=== PATIENT | female | born 1940 | race Caucasian/White ===

== ENCOUNTER → 2019-10-13 | Outpatient (CLI) | payer MEDICARE ==
[~2019-10-13] VITALS: Ht 167.6 cm; Wt 76.7 kg
[~2019-10-13] MED LIST: REGADENOSON 0.4 MG/5 ML PF SYG IVP SCH
== END | disposition home or self-care (01) ==
LOC: SHCH 08:19
PROVIDERS: ATTEND Internal Medicine Cardiovascular Disease
DX: R07.9 Chest pain, unspecified (principal)
CPT/HCPCS: 78452; 93017; 96374; A9500 ×2; J2785

== ENCOUNTER 2019-11-04 10:39 | Emergency (ER) | payer MEDICARE ==
[~2019-11-04 10:39] MED LIST changes: +ASPI-555 PO; +ATOR20TA65 PO; +AZEL50GE2 TP; +CALC-1009 PO; +CETI-109 PO; +DICY10CA13 PO; +GABA-531 PO; +HYDR25TA PO; +LEVO100T4 PO; +METO50TA18 PO; +MONT10TA26 PO; +MULT1TAB70 PO; +OXYB10TA30 PO; -REGADENOSON 0.4 MG/5 ML PF SYG IVP SCH; +SERT50TA PO; +SYMB8060 IH; +ZOLP10TA6 PO
[2019-11-04 11:11] LABS: CREATININE 0.6 mg/dL (0.5-1.5)
[2019-11-04 11:15] LABS: BASOPHILS % (AUTO) 0.6 % (0.0-5.0); EOSINOPHILS % (AUTO) 2.6 % (0.0-8.0); HEMATOCRIT 40.2 % (36-48); MEAN CORPUSCULAR HEMOGLOBIN 30.3 pg (27.0-33.0); MEAN CORPUSCULAR HGB CONC 32.8 g/dL (32.0-36.0); MEAN CORPUSCULAR VOLUME 92.4 fL (79-99); NEUTROPHILS % (AUTO) 72.7 % (40.0-77.0); PLATELET COUNT (AUTO) 433 K/uL (130-400); RED BLOOD CELL COUNT(AUTO) 4.35 MIL/uL (4.00-5.50); RED CELL DISTRIBUTION WIDTH 13.1 % (11.0-15.5); WHITE BLOOD COUNT (AUTO) 14.1 K/uL (4.8-10.8)
[2019-11-04 11:17] LABS: ALBUMIN 2.8 g/dL (3.5-5.0); BILIRUBIN,DIRECT 0.1 mg/dL (0.0-0.3); BILIRUBIN,TOTAL 0.6 mg/dL (0.2-1.0); TOTAL PROTEIN, SERUM 7.5 g/dL (6.0-8.3)
[2019-11-04 11:23] LABS: INR 0.99 (0.85-1.15); PARTIAL THROMBOPLASTIN TIME 32.4 SEC (26.3-35.5); PROTHROMBIN TIME 10.4 SEC (9.6-11.6)
[2019-11-04 11:47] LABS: B-TYPE NATRIURETIC PEPTIDE 95 pg/mL (0-100)
[2019-11-04] MEDS ORDERED: IOHEXOL 350 MG/ML 100ML INFUS..BTL IV ONE (12:17)
== END 2019-11-04 15:18 | disposition home or self-care (01) ==
LOC: EDH 10:39
DX: M54.5 Low back pain (principal); R06.00 Dyspnea, unspecified; I10 Essential (primary) hypertension; E03.9 Hypothyroidism, unspecified; Z88.1 Allergy status to other antibiotic agents; Z87.891 Personal history of nicotine dependence; Z98.890 Other specified postprocedural states
CPT/HCPCS: 36415; 71275; 74174; 80048; 80076; 83690; 83880; 84484; 85025; 85610; 85730; 93005; 99285; Q9967

== ENCOUNTER → 2020-01-20 | Outpatient (CLI) | payer MEDICARE ==
[~2020-01-20] MED LIST changes: -ASPI-555 PO; +ASPI-556 PO; -CETI-109 PO; +CETI-89 PO; +MULT-660 PO; -MULT1TAB70 PO
[2020-01-20 12:59] LABS: CREATININE 0.7 mg/dL (0.5-1.5)
== END | disposition home or self-care (01) ==
LOC: LAB 11:33
PROVIDERS: ATTEND Internal Medicine Cardiovascular Disease
DX: K55.032 Diffuse acute (reversible) ischemia of large intestine (principal); I73.9 Peripheral vascular disease, unspecified
CPT/HCPCS: 36415; 82565; 84520

== ENCOUNTER → 2020-01-21 | Outpatient (CLI) | payer MEDICARE ==
[~2020-01-21] MED LIST changes: +IOHEXOL-350 75 ML VIAL IV ONE
== END | disposition home or self-care (01) ==
LOC: RAH 08:00
PROVIDERS: ATTEND Internal Medicine Cardiovascular Disease
DX: K55.032 Diffuse acute (reversible) ischemia of large intestine (principal); I50.810 Right heart failure, unspecified; I73.9 Peripheral vascular disease, unspecified; I51.7 Cardiomegaly; J81.1 Chronic pulmonary edema; R91.8 Other nonspecific abnormal finding of lung field
CPT/HCPCS: 71275; 75635; Q9967

== ENCOUNTER 2020-01-29 06:26 | Day surgery (SDC) | payer MEDICARE ==
[~2020-01-29] VITALS: Ht 167.6 cm; Wt 73.3 kg
[2020-01-29] VITALS (10 sets, daily range): BP systolic 116–140; BP diastolic 46–74
[~2020-01-29 06:26] MED LIST changes: -IOHEXOL-350 75 ML VIAL IV ONE; +SODIUM CHLORIDE 0.9% 1000ML 1,000 ML IV ONE
[2020-01-29 06:30] LABS: EOSINOPHILS % (AUTO) 5.6 % (0.0-8.0); HEMATOCRIT 41.2 % (36-48); LYMPHOCYTES % (AUTO) 27.3 % (21.0-51.0); MEAN CORPUSCULAR HEMOGLOBIN 30.8 pg (27.0-33.0); MEAN CORPUSCULAR HGB CONC 32.5 g/dL (32.0-36.0); MEAN CORPUSCULAR VOLUME 94.7 fL (79-99); MONOCYTES % (AUTO) 14.8 % (3.0-13.0); NEUTROPHILS % (AUTO) 50.8 % (40.0-77.0); PLATELET COUNT (AUTO) 184 K/uL (130-400); RED BLOOD CELL COUNT(AUTO) 4.35 MIL/uL (4.00-5.50); RED CELL DISTRIBUTION WIDTH 13.3 % (11.0-15.5); WHITE BLOOD COUNT (AUTO) 8.7 K/uL (4.8-10.8)
--- NOTE | 2020-01-29 06:30 | NUR ---
PRE OP PT ARRIVED AMBULATORY IN NO DISTRESS. PT ORIENTED TO ROOM, CALL LIGHT WITH IN REACH, BED IN LOWEST POSITION AND PT CONNECTED TO SUBSCRIPTION CLERK. PT HAS BILAT MASTECTOMY WITHOUT LYMPH NODE INVOLVEMENT. PT HAS RT THIGH WITH RED BLOTCHES PT REPORTED MD WAS MADE AWARE AND NO NEW ORDERS. WILL CONTINUE TO MONITOR PT.
[2020-01-29 06:37] LABS: CREATININE 0.7 mg/dL (0.5-1.5); POTASSIUM 3.7 mmol/L (3.5-5.1)
[2020-01-29 07:06] LABS: INR 0.91 (0.85-1.15); PARTIAL THROMBOPLASTIN TIME 28.4 SEC (26.3-35.5); PROTHROMBIN TIME 9.9 SEC (9.6-11.6)
[2020-01-29] MEDS ORDERED: MIDAZOLAM HCL 1 MG/ML 2ML VIAL ONE ×3 (07:52→09:18)
[2020-01-29] MEDS ORDERED: MEPERIDINE-PF 25 MG/ML SYG ONE ×3 (07:52→09:17)
[2020-01-29] MEDS ORDERED: IODIXANOL 320 MG/ML 100 ML VIAL ONE ×2 (07:52→07:57)
[2020-01-29] MEDS ORDERED: HEPARIN SODIUM 1000UNIT/ML 10ML VIAL ONE (07:52)
[2020-01-29] MEDS ORDERED: NITROGLYCERIN 2 MG/VIAL VIAL IV ONE (07:52)
[2020-01-29] MEDS ORDERED: LIDOCAINE HCL 2% 20ML ONE (07:53)
[2020-01-29] MEDS ORDERED: SODIUM BICARB 50MEQ 50ML VIAL ONE (07:56)
--- NOTE | 2020-01-29 08:15 | NUR ---
TRANSFER PT TAKEN TO ARMOR SENIOR SERGEANT VIA BED BY STEVE HBAT. PT IN NO DISTRESS
[2020-01-29 08:18] LABS: BILIRUBIN,URINE Negative (NEGATIVE); COLOR,URINE Yellow (YELLOW); GLUCOSE, URINE (UA) Negative (NEGATIVE); KETONES,URINE Negative (NEGATIVE); LEUKOCYTE ESTERASE ,URINE Moderate (NEGATIVE); NITRATE,URINE Negative (NEGATIVE); OCCULT BLOOD,URINE Negative (NEGATIVE); PH,URINE 5.5 (5.0-8.0); PROTEIN,URINE Negative (NEGATIVE); UROBILINOGEN,URINE 0.2 mg/dL (0.2-1.0)
[2020-01-29 08:23] LABS: APPEARANCE,URINE SLIGHTLY CLOUDY (CLEAR)
[2020-01-29 08:55] LABS: BACTERIA,URINE Few /HPF (None Seen)
[2020-01-29 08:56] LABS: RBC,URINE 0-1 /HPF (0-1); SQUAMOUS EPITHELIAL CELL,UR 0-2 /HPF (0-2)
--- NOTE | 2020-01-29 10:20 | NUR ---
REPORT UGO BHAT FROM [employer] MACHINE OPERATOR CALLED REPORT POST ANGIOGRAM. NO INTERVENTION DONE. PT WAS GIVEN MODERATE SEDATION AND HAS RT FEMORAL WITH PERCLOSE DEVICE AND NO ACTIVE BLEEDING OR HEMATOMA. PT TO GET HYDRATION AND BEDREST FOR 4 HOURS. SCRIPT IN CHART
[2020-01-29] MEDS ORDERED: SODIUM CHLORIDE 0.9% 1000ML 1,000 ML IV SCH (10:41)
[2020-01-29] MEDS ORDERED: ACETAMINOPHEN-CODEINE 300/30MG TAB PO PRN ×2 (10:45)
--- NOTE | 2020-01-29 10:50 | NUR ---
POST CATH RECEIVED PT POST ANGIOGRAM. PT BROUGHT BACK VIA BED IN NO DISTRESS BY UGO BHAT. RT GROIN SITE FREE FROM BLEEDING OR HEMATOMA. WILL CONTINUE TO MONITOR PT
--- NOTE | 2020-01-29 12:20 | NUR ---
BEDREST PT IN LOW FOWLERS. PT REMINDED SHE IS ON BEDREST UNTIL 1500. PT REPORTED SHE FORGOT. NO BLEEDING OR HEMATOMA NOTED TO SITE.
--- NOTE | 2020-01-29 14:05 | NUR ---
REPORT REPORT GIVEN TO KATHIE BHAT AT BEDSIDE. PT HAS URGE TO URINATE BUT NOT ABLE TO USE BEDPAN WANTS TO WAIT SOON BEDREST IS OVER. PT IN NO DISTRESS AND NO ACTIVE BLEEDING OR HEMATOMA TO SITE
== END 2020-01-29 14:50 | disposition home or self-care (01) ==
LOC: DAH 06:26 → CLH 06:26 → DAH 14:50
PROVIDERS: ATTEND Internal Medicine Cardiovascular Disease
DX: K55.032 Diffuse acute (reversible) ischemia of large intestine (principal); I77.4 Celiac artery compression syndrome; E03.9 Hypothyroidism, unspecified; Z88.0 Allergy status to penicillin; Z90.13 Acquired absence of bilateral breasts and nipples; Z85.3 Personal history of malignant neoplasm of breast
CPT/HCPCS: 36245; 36415; 37236; 71045; 75726 ×2; 80048; 81001; 85025; 85610; 85730; 87088; 93005; A4215; A4216; A4221; A4222; A4223 ×3; A4606; A4663; C1725; C1760; C1769 ×3; C1894; J1644 ×2; J2175 ×3; J2250 ×3; J3490 ×3; J7030 ×2; Q9967; 99156; 99157

== ENCOUNTER → 2020-10-21 | Outpatient (CLI) | payer MEDICARE ==
[~2020-10-21] MED LIST changes: +IOHEXOL 350 MG/ML 100ML INFUS..BTL IV ONE; -MONT10TA26 PO; +MONT10TA96 PO; -SODIUM CHLORIDE 0.9% 1000ML 1,000 ML IV ONE
== END | disposition home or self-care (01) ==
LOC: RAH 08:38
PROVIDERS: ATTEND Internal Medicine Cardiovascular Disease
DX: I25.10 Atherosclerotic heart disease of native coronary artery without angina pectoris (principal); I71.2 Thoracic aortic aneurysm, without rupture
CPT/HCPCS: 71275; 74174; Q9967